=== PATIENT | female | born 1955 | race Caucasian/White ===

== ENCOUNTER 2020-09-13 06:33 | Day surgery (SDC) | payer MEDICARE, OTHER ==
[~2020-09-13] VITALS: Ht 168 cm; Wt 106.0 kg
[~2020-09-13 06:33] MED LIST: ALDACTONE25 MG PO; ASCORBIC ACID500 MG PO; ASPIRIN EC81 MG PO; BIOTIN1 MG PO; CHEWABLE VITAMIN PO; COREG12.5 MG PO; ESTRADIOL1 EAC6 TOP; ETODOLAC400 MG PO; FENTANYL 110 MCG/11 INTRAT; FLONASE ALLER15.8 ML; GLIPIZIDE 5 MG (5 MG PO; K-DUR20 MEQ PO; LANSOPRAZOLE30 MG PO; LASIX20 MG PO; METFORMIN HCL500 MG PO; NORCO 5-325 TA1 EACH PO; OS-CAL500 MG PO; PERCOCET 5-3251 EACH PO; POLYETHYLENE G500 GM PO; ROBAXIN500 MG PO; ROSUVASTATIN CAL5 MG PO; VITAMIN B-1100 M1 PO; VITAMIN B-121000 MC1 PO; VITAMIN D32000 UNI1 PO; VITRON-C TABLE1 EACH PO
[2020-09-14 05:51] LABS: BASOPHIL 0.5 % (0-2); EOSINOPHIL 2.3 % (0-7); HCT 36.1 % (37.0-47.0); HGB 11.9 g/dl (12.5-16.0); LYMPHOCYTE 12.1 % (15-48); MCH 30.7 pg (25.0-31.0); MCV 93.3 fL (78.0-100.0); MONOCYTE 8.4 % (0-12); MPV 10.1 fL (6.0-9.5); NEUTROPHIL 76.4 % (41-80); NRBC 0; PLT 266 K/uL (150-400); RBC 3.87 M/uL (4.20-5.40); RDW 12.3 % (11.5-14.0); WBC 11.5 K/uL (4.0-10.5)
[2020-09-14 06:03] LABS: BUN/CREAT RATIO (CALC) 15.5 RATIO; CREATININE 0.97 mg/dL (0.51-0.95)
[2020-09-14] MEDS ORDERED: FEOSOL325 MG PO (08:46)
[2020-09-14] MEDS ORDERED: ASPIRIN81 MG PO (08:46)
[2020-09-14] MEDS ORDERED: PERCOCET 5-3251 EACH PO (09:22)
== END 2020-09-14 12:33 | disposition home or self-care (01) ==
LOC: FAS 06:33 → FMS 06:33 → FAS 08:30 → FMS 10:08 → FAS 09-14 12:33
PROVIDERS: Orthopaedic Surgery
DX: M17.12 Unilateral primary osteoarthritis, left knee (principal); E11.9 Type 2 diabetes mellitus without complications; E78.5 Hyperlipidemia, unspecified; K58.9 Irritable bowel syndrome, unspecified; M71.20 Synovial cyst of popliteal space [Baker], unspecified knee; M21.10 Varus deformity, not elsewhere classified, unspecified site; I10 Essential (primary) hypertension; Z88.8 Allergy status to other drugs, medicaments and biological substances; Z79.899 Other long term (current) drug therapy; Z98.84 Bariatric surgery status; Z20.822 Contact with and (suspected) exposure to COVID-19
CPT/HCPCS: 27447; 0054T; 36415; 73560; 80048; 85025; 86850; 86900; 86901; 94010; 94760; 94762; 97110; 97116; 97162; 97165; 97530-GP; 97535; C1713; C1776; J0171; J0697; J1170; J1885; J2250; J2270; J2704; J2795; J3010; J7120

== ENCOUNTER 2020-10-06 17:38 | Emergency (ER) | payer MEDICARE, OTHER ==
[~2020-10-06 17:38] MED LIST changes: +ASPIRIN81 MG PO; +FEOSOL325 MG PO
[2020-10-06 20:29] LABS: BASOPHIL 0.5 % (0-2); EOSINOPHIL 1.9 % (0-7); HCT 42.7 % (37.0-47.0); HGB 14.6 g/dl (12.5-16.0); LYMPHOCYTE 16.3 % (15-48); MCH 31.2 pg (25.0-31.0); MCHC 34.2 g/dL (32.0-36.0); MCV 91.2 fL (78.0-100.0); MONOCYTE 8.2 % (0-12); MPV 9.7 fL (6.0-9.5); NEUTROPHIL 72.9 % (41-80); NRBC 0; PLT 359 K/uL (150-400); RBC 4.68 M/uL (4.20-5.40); RDW 12.7 % (11.5-14.0); WBC 8.8 K/uL (4.0-10.5)
[2020-10-06 20:46] LABS: BUN/CREAT RATIO (CALC) 22.7 RATIO; CREATININE 0.75 mg/dL (0.51-0.95); POTASSIUM 4.3 mmol/L (3.5-5.1)
== END 2020-10-06 21:11 | disposition home or self-care (01) ==
LOC: FER 17:38
PROVIDERS: Emergency Medicine
DX: M25.562 Pain in left knee (principal); I10 Essential (primary) hypertension; E11.9 Type 2 diabetes mellitus without complications; Z88.8 Allergy status to other drugs, medicaments and biological substances; Z96.652 Presence of left artificial knee joint; M79.662 Pain in left lower leg; R22.42 Localized swelling, mass and lump, left lower limb
CPT/HCPCS: 36415; 80048; 85025; 93971; J1885